=== PATIENT | female | born 1990 | race African-American/Black ===

== ENCOUNTER 2016-12-09 16:59 | Emergency (ER) | payer MEDICAID ==
[~2016-12-09] VITALS: Ht 160 cm; Wt 55.0 kg
[~2016-12-09 16:59] MED LIST: AMOXICILLIN; MOTRIN
[2016-12-09 17:00] VITALS: BP 108/62
== END 2016-12-10 | disposition left against medical advice (07) ==
LOC: ER 17:20
DX: R53.1 Weakness (principal); Z53.21 Procedure and treatment not carried out due to patient leaving prior to being seen by health care provider